=== PATIENT | male | born 1970 | race African-American/Black ===

== ENCOUNTER 2024-04-24 10:11 | Inpatient (IN) | payer MEDICAID ==
[~2024-04-24] VITALS: Ht 177.8 cm; Wt 93.2 kg
[2024-04-24] MEDS: HYDROCODONE/ACETAMINOPHEN 5-325 MG TABLET PO ONE (11:27)
[2024-04-24] MEDS: LIDOCAINE 5% TRANSDERMAL PATCH TD ONE (11:27)
[2024-04-24 11:29] LABS: BASOPHILS % (AUTO) 0.3 % (0.0-2.0); EOSINOPHILS % (AUTO) 0 % (1.0-6.0); HEMATOCRIT 30.9 % (41-53); HEMOGLOBIN 10.3 g/dL (13.5-17.5); LYMPHOCYTES % (AUTO) 5.7 % (22.0-44.0); MEAN CORPUSCULAR HEMOGLOBIN 26.8 pg (26.0-34.0); MEAN CORPUSCULAR HGB CONC 33.3 G/dL (31.0-37.0); MEAN CORPUSCULAR VOLUME 81 fL (80-100); MONOCYTES # (AUTO) 1.4 K/uL (0.1-1.0); MONOCYTES % (AUTO) 8.2 % (2.0-9.0); NEUTROPHILS # (AUTO) 14.5 K/uL (1.8-7.7); PLATELET COUNT (AUTO) 257 K/uL (150-450); RED BLOOD CELL COUNT(AUTO) 3.84 MIL/uL (4.50-5.90); RED CELL DISTRIBUTION WIDTH 19.8 % (11.5-14.5); WHITE BLOOD COUNT (AUTO) 16.9 K/uL (4.5-11.0)
[2024-04-24 11:30] VITALS: PULSE 89; PULSE 96; RESP 16; O2SAT 98
[2024-04-24 11:30] LABS: NEUTROPHILS % (AUTO) 85.8 % (40.0-70.0)
[2024-04-24 11:42] LABS: CREATININE 11.93 mg/dL (0.60-1.30); MAGNESIUM 1.9 mg/dL (1.80-2.40)
[2024-04-24 11:45] LABS: POTASSIUM 6.5 mmol/L (3.5-5.1)
[2024-04-24] MEDS: ALBUTEROL SULFATE 2.5 MG/0.5 ML 5 ML NEB SOLUTION NEB ONE (12:08)
[2024-04-24] MEDS: CALCIUM GLUCONATE 100 MG/ML 10 ML IVP ONE (12:11)
[2024-04-24 12:30] VITALS: PULSE 100; RESP 16; O2SAT 100
[2024-04-24] MEDS ORDERED: ZOLPIDEM TARTRATE 5 MG TABLET PO PRN (13:45)
[2024-04-24] MEDS ORDERED: ONDANSETRON HCL 4 MG/2 ML VIAL IVP PRN (13:45)
[2024-04-24 14:00] LABS: APPEARANCE,URINE CLEAR (CLEAR); BILIRUBIN,URINE NEGATIVE (NEGATIVE); COLOR,URINE LIGHT YELLOW (YELLOW); GLUCOSE, URINE (UA) 300-500 mg/dL (NEGATIVE); KETONES,URINE NEGATIVE (NEGATIVE); LEUKOCYTE ESTERASE ,URINE NEGATIVE (NEGATIVE); NITRATE,URINE NEGATIVE (NEGATIVE); OCCULT BLOOD,URINE SMALL (NEGATIVE); PH,URINE 5.5 (5.0-8.0); PROTEIN,URINE 300-600,SEE CONFIRM mg/dL (NEGATIVE); SPECIFIC GRAVITIY, URINE 1.012 (1.003-1.030); UROBILINOGEN,URINE <=1.0 mg/dL (<=1.0)
[2024-04-24] MEDS ORDERED: DEXTROSE 50%-WATER 25 GM/50 ML SYRINGE IVP PRN (14:00)
[2024-04-24 14:17] LABS: SULFOSALICYLIC ACID,URINE 3+ (Negative)
[2024-04-24 14:18] LABS: BACTERIA,URINE None Seen /HPF (None Seen); RBC,URINE None Seen /HPF (0-2); SQUAMOUS EPITHELIAL CELL,UR Few /LPF (None Seen); WBC,URINE 0-2 /HPF (0-5)
[2024-04-24] MEDS: FUROSEMIDE 20 MG/2 ML VIAL IVP ONE (14:32)
[2024-04-24] MEDS: INSULIN LISPRO 100 UNITS/ML SQ PRN (14:52)
[2024-04-24] MEDS: PIPERACILLIN SODIUM/TAZOBACTAM 2.25 GM in DEXTROSE 5%-WATER 50 ML IV ONE (14:53)
[2024-04-24] MEDS: VANCOMYCIN 500 MG/WATER(PEG) 100 ML IV ONE (15:30)
[2024-04-24] MEDS: HEPARIN SODIUM,PORCINE 5,000 UNITS/ML VIAL SQ SCH (16:00)
[2024-04-24 18:52] VITALS: BP 138/77; PULSE 112; RESP 18; TEMP 100.2; O2SAT 98
[2024-04-24 19:12] LABS: CREATININE 12.83 mg/dL (0.60-1.30); POTASSIUM 5.3 mmol/L (3.5-5.1)
[2024-04-24 20:20] VITALS: BP 145/74; PULSE 108; RESP 20; TEMP 99.4; O2SAT 95
[2024-04-24 20:25] LABS: GLUCOMETER DEV NAME(LOC) ERT.5; GLUCOSE,POINT OF CARE 288 MG/DL (70-110)
[2024-04-24 20:25] LABS: GLUCOMETER DEV NAME(LOC) ERT.5; GLUCOSE,POINT OF CARE 323 MG/DL (70-110)
[2024-04-24] MEDS: ACETAMINOPHEN 325 MG TABLET PO PRN (20:55)
[2024-04-24] MEDS: DOCUSATE SODIUM 100 MG CAPSULE PO SCH (20:56)
[2024-04-24 23:16] LABS: GLUCOMETER DEV NAME(LOC) 5S.2D; GLUCOSE,POINT OF CARE 323 MG/DL (70-110)
[2024-04-24] MEDS ORDERED: SODIUM CHLORIDE 0.9% 250 ML IV ONE (23:46)
[2024-04-25] MEDS: PIPERACILLIN SODIUM/TAZOBACTAM 2.25 GM in DEXTROSE 5%-WATER 50 ML IV SCH
[2024-04-25] MEDS: OxyCODONE HCL/ACETAMINOPHEN 5-325 MG TABLET PO PRN (00:01)
[2024-04-25 00:10] VITALS: BP 117/65; PULSE 90; RESP 20; TEMP 99.4; O2SAT 96
[2024-04-25 04:57] VITALS: BP 125/73; PULSE 80; RESP 20; TEMP 97.7; O2SAT 98
[2024-04-25 07:27] LABS: CALCIUM, TOTAL 9.2 mg/dL (8.8-10.5); CREATININE 12.62 mg/dL (0.60-1.30); POTASSIUM 5.4 mmol/L (3.5-5.1)
[2024-04-25 08:00] VITALS: BP 140/81; PULSE 84; RESP 18; TEMP 98.2; O2SAT 99
[2024-04-25] MEDS: FAMOTIDINE 20 MG TABLET PO SCH (08:11)
[2024-04-25] MEDS: SODIUM ZIRCONIUM CYCLOSILICATE 5 GM POWDER PACKET PO SCH (08:11)
[2024-04-25 10:39] LABS: BASOPHILS % (AUTO) 0.3 % (0.0-2.0); EOSINOPHILS % (AUTO) 0.4 % (1.0-6.0); HEMATOCRIT 29.1 % (41-53); HEMOGLOBIN 9.6 g/dL (13.5-17.5); LYMPHOCYTES # (AUTO) 1.3 K/uL (1.0-4.8); LYMPHOCYTES % (AUTO) 10.4 % (22.0-44.0); MEAN CORPUSCULAR HEMOGLOBIN 26.7 pg (26.0-34.0); MEAN CORPUSCULAR HGB CONC 32.8 G/dL (31.0-37.0); MEAN CORPUSCULAR VOLUME 81 fL (80-100); MONOCYTES # (AUTO) 1.2 K/uL (0.1-1.0); MONOCYTES % (AUTO) 9.5 % (2.0-9.0); NEUTROPHILS # (AUTO) 10.1 K/uL (1.8-7.7); NEUTROPHILS % (AUTO) 79.4 % (40.0-70.0); PLATELET COUNT (AUTO) 278 K/uL (150-450); RED BLOOD CELL COUNT(AUTO) 3.58 MIL/uL (4.50-5.90); RED CELL DISTRIBUTION WIDTH 20.1 % (11.5-14.5); WHITE BLOOD COUNT (AUTO) 12.7 K/uL (4.5-11.0)
[2024-04-25 12:00] VITALS: BP 138/76; PULSE 89; RESP 16; TEMP 98.3; O2SAT 98
[2024-04-25 15:52] VITALS: BP 126/76; PULSE 83; RESP 18; TEMP 98.1; O2SAT 100
[2024-04-25 19:32] VITALS: BP 133/78; PULSE 104; RESP 20; TEMP 99.9; O2SAT 100
[2024-04-25 21:00] LABS: GLUCOMETER DEV NAME(LOC) 5N.2C; GLUCOSE,POINT OF CARE 145 MG/DL (70-110)
[2024-04-26] VITALS (7 sets, daily range): BP systolic 133–157; BP diastolic 74–92; PULSE 76–93; RESP 18–19; TEMP 98.2–98.9; O2SAT 97–100
[2024-04-26 00:31] LABS: GLUCOMETER DEV NAME(LOC) 5N.1D; GLUCOSE,POINT OF CARE 190 MG/DL (70-110)
[2024-04-26 05:25] LABS: GLUCOMETER DEV NAME(LOC) 5N.1D; GLUCOSE,POINT OF CARE 158 MG/DL (70-110)
[2024-04-26 07:10] LABS: CALCIUM, TOTAL 9.2 mg/dL (8.8-10.5); CREATININE 11.94 mg/dL (0.60-1.30); POTASSIUM 5.6 mmol/L (3.5-5.1)
[2024-04-26] MEDS ORDERED: VANCOMYCIN 1GM/WATER(PEG/NADA) 200 ML IV PRN (07:30)
[2024-04-26] MEDS: VANCOMYCIN 500 MG/WATER(PEG) 100 ML IV ONE (09:20)
[2024-04-26 12:05] LABS: GLUCOMETER DEV NAME(LOC) 5N.2C; GLUCOSE,POINT OF CARE 209 MG/DL (70-110)
[2024-04-26 20:10] LABS: GLUCOMETER DEV NAME(LOC) 5N.2C; GLUCOSE,POINT OF CARE 133 MG/DL (70-110)
[2024-04-27] VITALS: BP 149/87; PULSE 86; RESP 18; TEMP 98.7; O2SAT 97
[2024-04-27 04:00] VITALS: BP 155/89; PULSE 90; RESP 17; TEMP 98.2; O2SAT 95
[2024-04-27 06:55] LABS: BASOPHILS % (AUTO) 0.2 % (0.0-2.0); EOSINOPHILS % (AUTO) 1.7 % (1.0-6.0); HEMATOCRIT 30.2 % (41-53); LYMPHOCYTES # (AUTO) 1.1 K/uL (1.0-4.8); LYMPHOCYTES % (AUTO) 8.8 % (22.0-44.0); MEAN CORPUSCULAR HEMOGLOBIN 26.9 pg (26.0-34.0); MEAN CORPUSCULAR HGB CONC 33.1 G/dL (31.0-37.0); MEAN CORPUSCULAR VOLUME 81 fL (80-100); MONOCYTES # (AUTO) 0.9 K/uL (0.1-1.0); MONOCYTES % (AUTO) 7.2 % (2.0-9.0); NEUTROPHILS % (AUTO) 82.1 % (40.0-70.0); PLATELET COUNT (AUTO) 325 K/uL (150-450); RED BLOOD CELL COUNT(AUTO) 3.71 MIL/uL (4.50-5.90); RED CELL DISTRIBUTION WIDTH 19.7 % (11.5-14.5); WHITE BLOOD COUNT (AUTO) 12.2 K/uL (4.5-11.0)
[2024-04-27 06:56] LABS: CALCIUM, TOTAL 8.9 mg/dL (8.8-10.5); CREATININE 11.41 mg/dL (0.60-1.30); POTASSIUM 5.7 mmol/L (3.5-5.1)
[2024-04-27 07:23] VITALS: BP 155/89; PULSE 93; RESP 18; TEMP 98.6; O2SAT 96
[2024-04-27] MEDS ORDERED: LIDOCAINE/PF 1% 30 ML VIAL ONE (08:12)
[2024-04-27 08:36] LABS: GLUCOMETER DEV NAME(LOC) 5N.1D; GLUCOSE,POINT OF CARE 205 MG/DL (70-110)
[2024-04-27 08:36] LABS: GLUCOMETER DEV NAME(LOC) 5N.1D; GLUCOSE,POINT OF CARE 210 MG/DL (70-110)
[2024-04-27] MEDS: SODIUM ZIRCONIUM CYCLOSILICATE 5 GM POWDER PACKET PO SCH (09:03)
[2024-04-27] MEDS: VANCOMYCIN 1GM/WATER(PEG/NADA) 200 ML IV ONE (09:05)
[2024-04-27] MEDS ORDERED: SODIUM CHLORIDE 0.9% 500 ML IV ONE (09:08)
[2024-04-27] MEDS: LIDOCAINE 1% 30 ML/SOD BICARB 8.4% 4 ML SQ ONE (10:44)
[2024-04-27 11:38] VITALS: BP 154/77; PULSE 84; RESP 18; TEMP 98.3; O2SAT 97
[2024-04-27 12:20] LABS: GLUCOMETER DEV NAME(LOC) 5N.1D; GLUCOSE,POINT OF CARE 216 MG/DL (70-110)
[2024-04-27 16:03] VITALS: BP 166/95; PULSE 71; RESP 18; TEMP 98.6; O2SAT 97
[2024-04-27 20:00] VITALS: BP 137/80; PULSE 92; RESP 18; TEMP 98.4; O2SAT 98
[2024-04-28] VITALS (9 sets, daily range): BP systolic 131–170; BP diastolic 75–93; PULSE 81–96; RESP 18; TEMP 97.5–98.2; O2SAT 96–100
[2024-04-28] MEDS: HydrALAZINE HCL 20 MG/ML VIAL IVP PRN (01:40)
[2024-04-28 05:11] LABS: GLUCOMETER DEV NAME(LOC) 5N.1D; GLUCOSE,POINT OF CARE 128 MG/DL (70-110)
[2024-04-28 05:11] LABS: GLUCOMETER DEV NAME(LOC) 5N.1D; GLUCOSE,POINT OF CARE 188 MG/DL (70-110)
[2024-04-28 07:02] LABS: CALCIUM, TOTAL 8.8 mg/dL (8.8-10.5); CREATININE 11.1 mg/dL (0.60-1.30)
[2024-04-28 07:04] LABS: POTASSIUM 6.1 mmol/L (3.5-5.1)
[2024-04-28] MEDS: OxyCODONE HCL/ACETAMINOPHEN 5-325 MG TABLET PO PRN (08:22)
[2024-04-28] MEDS ORDERED: VANCOMYCIN 1GM/WATER(PEG/NADA) 200 ML IV PRN (10:45)
[2024-04-28] MEDS: SODIUM POLYSTYRENE SULFONATE 15 GM/60 ML SUSPENSION BOTTLE PO ONE (12:28)
[2024-04-28] MEDS: HydrALAZINE HCL 25 MG TABLET PO SCH (16:29)
[2024-04-28 20:16] LABS: GLUCOMETER DEV NAME(LOC) 5N.2C; GLUCOSE,POINT OF CARE 189 MG/DL (70-110)
[2024-04-28 20:16] LABS: GLUCOMETER DEV NAME(LOC) 5N.1D; GLUCOSE,POINT OF CARE 198 MG/DL (70-110)
[2024-04-28 20:16] LABS: GLUCOMETER DEV NAME(LOC) 5N.1D; GLUCOSE,POINT OF CARE 190 MG/DL (70-110)
[2024-04-28 23:51] LABS: GLUCOMETER DEV NAME(LOC) 5N.1D; GLUCOSE,POINT OF CARE 107 MG/DL (70-110)
[2024-04-29 04:25] VITALS: BP 142/84; PULSE 91; RESP 18; TEMP 98.4; O2SAT 99
[2024-04-29 07:33] LABS: CREATININE 11.28 mg/dL (0.60-1.30); POTASSIUM 5.4 mmol/L (3.5-5.1); VANCOMYCIN,RANDOM 17.2 mcg/mL (25.0-50.0)
[2024-04-29 07:41] LABS: GLUCOMETER DEV NAME(LOC) 5N.2C; GLUCOSE,POINT OF CARE 158 MG/DL (70-110)
[2024-04-29 07:47] LABS: BASOPHILS % (AUTO) 0.2 % (0.0-2.0); EOSINOPHILS % (AUTO) 1.6 % (1.0-6.0); HEMATOCRIT 29.6 % (41-53); HEMOGLOBIN 9.8 g/dL (13.5-17.5); LYMPHOCYTES # (AUTO) 1.4 K/uL (1.0-4.8); LYMPHOCYTES % (AUTO) 13.3 % (22.0-44.0); MEAN CORPUSCULAR VOLUME 82 fL (80-100); MONOCYTES # (AUTO) 0.7 K/uL (0.1-1.0); MONOCYTES % (AUTO) 7.4 % (2.0-9.0); NEUTROPHILS # (AUTO) 7.8 K/uL (1.8-7.7); NEUTROPHILS % (AUTO) 77.5 % (40.0-70.0); PLATELET COUNT (AUTO) 316 K/uL (150-450); RED BLOOD CELL COUNT(AUTO) 3.62 MIL/uL (4.50-5.90); RED CELL DISTRIBUTION WIDTH 19.7 % (11.5-14.5); WHITE BLOOD COUNT (AUTO) 10.1 K/uL (4.5-11.0)
[2024-04-29 08:04] VITALS: BP 162/93; PULSE 88; RESP 20; TEMP 98.2; O2SAT 98
[2024-04-29 12:19] VITALS: BP 156/96; PULSE 101; RESP 18; TEMP 98.4; O2SAT 97
[2024-04-29] MEDS ORDERED: SODI5POW3 PO (13:57)
[2024-04-29] MEDS ORDERED: CLIN300C58 PO (13:57)
[2024-04-29] MEDS ORDERED: HYDR50TA36 PO (13:57)
[2024-04-29 15:43] VITALS: BP 137/85; PULSE 89; RESP 18; TEMP 98.2; O2SAT 97
[2024-04-29 20:00] VITALS: BP 147/97; PULSE 99; RESP 18; TEMP 98.3; O2SAT 98
[2024-04-29 20:21] LABS: GLUCOMETER DEV NAME(LOC) 5N.2C; GLUCOSE,POINT OF CARE 215 MG/DL (70-110)
[2024-04-29 20:21] LABS: GLUCOMETER DEV NAME(LOC) 5N.2C; GLUCOSE,POINT OF CARE 116 MG/DL (70-110)
[2024-04-29 22:31] LABS: GLUCOMETER DEV NAME(LOC) 5N.1D; GLUCOSE,POINT OF CARE 156 MG/DL (70-110)
[2024-04-30] VITALS: BP 147/93; PULSE 95; RESP 17; TEMP 97.4; O2SAT 97
[2024-04-30 04:00] VITALS: BP 144/92; PULSE 97; RESP 18; TEMP 98.8; O2SAT 98
[2024-04-30 06:33] LABS: BASOPHILS % (AUTO) 0.3 % (0.0-2.0); EOSINOPHILS % (AUTO) 1.4 % (1.0-6.0); HEMATOCRIT 29.5 % (41-53); LYMPHOCYTES # (AUTO) 1.4 K/uL (1.0-4.8); MEAN CORPUSCULAR HEMOGLOBIN 27.4 pg (26.0-34.0); MEAN CORPUSCULAR HGB CONC 33.9 G/dL (31.0-37.0); MEAN CORPUSCULAR VOLUME 81 fL (80-100); MONOCYTES # (AUTO) 0.7 K/uL (0.1-1.0); MONOCYTES % (AUTO) 6.7 % (2.0-9.0); NEUTROPHILS # (AUTO) 8.4 K/uL (1.8-7.7); NEUTROPHILS % (AUTO) 78.6 % (40.0-70.0); PLATELET COUNT (AUTO) 319 K/uL (150-450); RED BLOOD CELL COUNT(AUTO) 3.65 MIL/uL (4.50-5.90); RED CELL DISTRIBUTION WIDTH 19.3 % (11.5-14.5); WHITE BLOOD COUNT (AUTO) 10.7 K/uL (4.5-11.0)
[2024-04-30 06:46] LABS: CALCIUM, TOTAL 9.2 mg/dL (8.8-10.5); CREATININE 10.71 mg/dL (0.60-1.30); POTASSIUM 5.1 mmol/L (3.5-5.1)
[2024-04-30] MEDS: VANCOMYCIN 750 MG/WATER(PEG) 150 ML IV ONE (08:59)
[2024-04-30 13:00] LABS: GLUCOMETER DEV NAME(LOC) 5N.1D; GLUCOSE,POINT OF CARE 182 MG/DL (70-110)
[2024-04-30 13:03] VITALS: BP 152/90; PULSE 98; RESP 18; TEMP 98.2; O2SAT 99
[2024-04-30 14:25] LABS: GLUCOMETER DEV NAME(LOC) 5N.2C; GLUCOSE,POINT OF CARE 143 MG/DL (70-110)
== END 2024-04-30 14:00 | disposition left against medical advice (07) | DRG 721 ==
LOC: EMS 10:16 → EDH 14:15 → 5N 17:50
PROVIDERS: ADMIT Internal Medicine; ATTEND Internal Medicine
PROC: 0JPT3XZ Removal of Tunneled Vascular Access Device from Trunk Subcutaneous Tissue and Fascia, Percutaneous Approach (ICD-10-PCS; principal; 2024-04-27)
DX: T80.212A Local infection due to central venous catheter, initial encounter (principal); A41.02 Sepsis due to Methicillin resistant Staphylococcus aureus; E11.610 Type 2 diabetes mellitus with diabetic neuropathic arthropathy; I12.0 Hypertensive chronic kidney disease with stage 5 chronic kidney disease or end stage renal disease; E11.22 Type 2 diabetes mellitus with diabetic chronic kidney disease; B95.7 Other staphylococcus as the cause of diseases classified elsewhere; D64.9 Anemia, unspecified; E11.40 Type 2 diabetes mellitus with diabetic neuropathy, unspecified; E87.5 Hyperkalemia; Z53.29 Procedure and treatment not carried out because of patient's decision for other reasons; Z66 Do not resuscitate; R91.8 Other nonspecific abnormal finding of lung field; N18.6 End stage renal disease; Z79.4 Long term (current) use of insulin; Z83.3 Family history of diabetes mellitus; Z99.2 Dependence on renal dialysis; Z79.2 Long term (current) use of antibiotics; M17.12 Unilateral primary osteoarthritis, left knee
CPT/HCPCS: 36590; 71250; 80048; 80202; 81001; 81002; 82962; 83735; 84132; 85025; 87040; 87070; 87077; 87186; 87205; 93005; 93970; 94644; 99285; J0360; J0610; J1644; J1815; J1940; J2543; J3490; J7040; J7050; J7060